=== PATIENT | female | born 1990 | race Two or more races ===

== ENCOUNTER → 2019-06-05 | Outpatient (CLI) | payer OTHER | END | disposition home or self-care (01) | LOC: PRENATAL 14:00 | DX: O99.212 Obesity complicating pregnancy, second trimester (principal); O36.4XX1 Maternal care for intrauterine death, fetus 1; O35.3XX1 Maternal care for (suspected) damage to fetus from viral disease in mother, fetus 1; O09.292 Supervision of pregnancy with other poor reproductive or obstetric history, second trimester ==

== ENCOUNTER 2019-09-22 13:05 | Inpatient (IN) | payer OTHER ==
[~2019-09-22] VITALS: Ht 160 cm; Wt 78.9 kg
[2019-09-24] MEDS ORDERED: PRENATAL + DHA1 EAC1 PO (09:23)
== END 2019-09-25 13:34 | disposition home or self-care (01) | DRG 768 ==
LOC: OBS/DEL 13:05 → OB/GYN 09-23 09:52 → OBS/DEL 09-23 09:52 → LDR 09-23 09:52 → OB/GYN 09-23 17:26
PROVIDERS: ADMIT Obstetrics & Gynecology; ATTEND Obstetrics & Gynecology
PROC: 10E0XZZ Delivery of Products of Conception, External Approach (ICD-10-PCS; principal; 2019-09-23)
PROC: 0DQR0ZZ Repair Anal Sphincter, Open Approach (ICD-10-PCS; 2019-09-23)
PROC: 0W8NXZZ Division of Female Perineum, External Approach (ICD-10-PCS; 2019-09-23)
PROC: 10907ZC Drainage of Amniotic Fluid, Therapeutic from Products of Conception, Via Natural or Artificial Opening (ICD-10-PCS; 2019-09-23)
PROC: 4A1HXCZ Monitoring of Products of Conception, Cardiac Rate, External Approach (ICD-10-PCS; 2019-09-23)
DX: O70.21 Third degree perineal laceration during delivery, IIIa (principal); Z37.0 Single live birth; O98.32 Other infections with a predominantly sexual mode of transmission complicating childbirth; A60.09 Herpesviral infection of other urogenital tract; Z3A.37 37 weeks gestation of pregnancy; Z20.828 Contact with and (suspected) exposure to other viral communicable diseases

== ENCOUNTER 2021-08-31 14:53 | Emergency (ER) | payer OTHER ==
[~2021-08-31] VITALS: Ht 160 cm; Wt 70.8 kg
[~2021-08-31 14:53] MED LIST: PRENATAL + DHA1 EAC1 PO
[2021-08-31] MEDS ORDERED: PROAIR HFA8.5 GM (15:39)
== END 2021-08-31 18:20 | disposition home or self-care (01) ==
LOC: ER 14:53
DX: O20.9 Hemorrhage in early pregnancy, unspecified (principal); O41.8X10 Other specified disorders of amniotic fluid and membranes, first trimester, not applicable or unspecified; Z3A.09 9 weeks gestation of pregnancy

== ENCOUNTER 2021-10-01 08:16 | Outpatient (CLI) | payer OTHER ==
[~2021-10-01 08:16] MED LIST changes: +PROAIR HFA8.5 GM
== END 2021-10-01 09:15 | disposition home or self-care (01) ==
LOC: PRENATAL 08:16
PROVIDERS: ATTEND Obstetrics & Gynecology Maternal & Fetal Medicine
DX: O36.80X0 Pregnancy with inconclusive fetal viability, not applicable or unspecified (principal); Z36.0 Encounter for antenatal screening for chromosomal anomalies; Z3A.13 13 weeks gestation of pregnancy

== ENCOUNTER 2021-10-14 17:18 | Emergency (ER) | payer OTHER ==
[~2021-10-14] VITALS: Ht 160 cm; Wt 71.2 kg
[2021-10-14] MEDS ORDERED: NITROFURANTOIN100 MG PO (20:46)
== END 2021-10-14 21:12 | disposition home or self-care (01) ==
LOC: ER 17:18
DX: O23.42 Unspecified infection of urinary tract in pregnancy, second trimester (principal); N39.0 Urinary tract infection, site not specified; Z3A.15 15 weeks gestation of pregnancy

== ENCOUNTER 2021-11-19 12:51 | Outpatient (CLI) | payer OTHER ==
[~2021-11-19 12:51] MED LIST changes: +NITROFURANTOIN100 MG PO
== END 2021-11-19 14:11 | disposition home or self-care (01) ==
LOC: PRENATAL 12:51
PROVIDERS: ATTEND Obstetrics & Gynecology Maternal & Fetal Medicine
DX: O35.0XX0 Maternal care for (suspected) central nervous system malformation in fetus, not applicable or unspecified (principal); O35.3XX0 Maternal care for (suspected) damage to fetus from viral disease in mother, not applicable or unspecified; Z3A.20 20 weeks gestation of pregnancy

== ENCOUNTER 2022-02-01 22:18 | Outpatient (CLI) | payer OTHER | END 2022-02-02 19:52 | disposition home or self-care (01) | LOC: OBS/DEL 22:18 | PROVIDERS: ATTEND Obstetrics & Gynecology | DX: O26.893 Other specified pregnancy related conditions, third trimester (principal); O23.43 Unspecified infection of urinary tract in pregnancy, third trimester; N39.0 Urinary tract infection, site not specified; O47.03 False labor before 37 completed weeks of gestation, third trimester; Z3A.31 31 weeks gestation of pregnancy; R10.2 Pelvic and perineal pain; Z20.822 Contact with and (suspected) exposure to COVID-19 ==

== ENCOUNTER 2022-03-31 12:25 | Inpatient (IN) | payer OTHER ==
[~2022-03-31] VITALS: Ht 152.4 cm; Wt 86.2 kg
[2022-04-04] MEDS ORDERED: VALTREX1000 MG PO (13:06)
[2022-04-04] MEDS ORDERED: IRON325 MG PO (13:07)
== END 2022-04-06 13:51 | disposition home or self-care (01) | DRG 807 ==
LOC: OB/GYN 04-04 12:32 → LDR 04-04 12:32 → OB/GYN 04-04 17:03 → LDR 04-06 13:15 → OB/GYN 04-06 13:51
PROVIDERS: ADMIT Obstetrics & Gynecology; ATTEND Obstetrics & Gynecology
PROC: 10E0XZZ Delivery of Products of Conception, External Approach (ICD-10-PCS; principal; 2022-04-04)
PROC: 0W8NXZZ Division of Female Perineum, External Approach (ICD-10-PCS; 2022-04-04)
PROC: 4A1HXCZ Monitoring of Products of Conception, Cardiac Rate, External Approach (ICD-10-PCS; 2022-04-04)
DX: O80 Encounter for full-term uncomplicated delivery (principal); Z37.0 Single live birth; Z3A.39 39 weeks gestation of pregnancy; Z20.822 Contact with and (suspected) exposure to COVID-19

== ENCOUNTER 2022-10-27 11:16 | Outpatient (CLI) | payer OTHER ==
[~2022-10-27 11:16] MED LIST changes: +IRON325 MG PO; +VALTREX1000 MG PO
== END 2022-10-27 12:13 | disposition home or self-care (01) ==
LOC: PRENATAL 11:16
PROVIDERS: ATTEND Obstetrics & Gynecology Maternal & Fetal Medicine
DX: O36.80X0 Pregnancy with inconclusive fetal viability, not applicable or unspecified (principal); Z36.82 Encounter for antenatal screening for nuchal translucency; Z36.9 Encounter for antenatal screening, unspecified; Z14.8 Genetic carrier of other disease; Z3A.14 14 weeks gestation of pregnancy

== ENCOUNTER 2023-02-20 19:19 | Emergency (ER) | payer OTHER ==
[~2023-02-20] VITALS: Ht 160 cm; Wt 85.3 kg
== END 2023-02-20 21:53 | disposition home or self-care (01) ==
LOC: ER 19:20
DX: O99.513 Diseases of the respiratory system complicating pregnancy, third trimester (principal); J10.1 Influenza due to other identified influenza virus with other respiratory manifestations; Z3A.30 30 weeks gestation of pregnancy; Z20.822 Contact with and (suspected) exposure to COVID-19

== ENCOUNTER 2023-03-02 10:04 | Outpatient (CLI) | payer OTHER | END 2023-03-02 10:06 | disposition home or self-care (01) | LOC: PRENATAL 10:04 | PROVIDERS: ATTEND Obstetrics & Gynecology Maternal & Fetal Medicine | DX: O26.849 Uterine size-date discrepancy, unspecified trimester (principal); O36.8199 Decreased fetal movements, unspecified trimester, other fetus; Z3A.32 32 weeks gestation of pregnancy ==

== ENCOUNTER 2023-03-09 10:23 | Inpatient (IN) | payer OTHER ==
[~2023-03-09] VITALS: Ht 160 cm; Wt 85.3 kg
[2023-03-09 12:18] LABS: HEMATOCRIT 36.5 % (36.0-45.00); HEMOGLOBIN 12.4 g/dL (12.0-15.00); MEAN CELL VOLUME 74.9 fL (80.00-100.00); MEAN CORPUSCULAR HEMOGLOBIN 25.4 pg (27.00-32.0); MEAN CORPUSCULAR HGB CONC 33.9 g/dl (32.0-36.0); PLATELET COUNT 303 K/uL (150-450); RED BLOOD COUNT 4.87 M/uL (4.00-6.00); RED CELL DISTRIBUTION WIDTH 15.7 % (11.5-14.5)
[2023-03-09 12:45] LABS: INR < 0.93; PROTHROMBIN TIME 9.8 SECONDS (9.0-11.5)
[2023-03-09 12:49] LABS: ALBUMIN 2.8 gm/dL (3.4-5.0); BILIRUBIN TOTAL 0.47 mg/dL (0.3-1.2); CALCIUM 8.8 mg/dL (8.5-10.1); CREATININE SERUM 0.53 mg/dL (0.55-1.02); GFR 134.55; GLOBULINA 5.1 G/DL (2.4-3.5); POTASSIUM 3.98 mEq/L (3.5-5.1); TOTAL PROTEIN 7.9 gm/dL (6.4-8.2)
[2023-03-09 19:16] LABS: URINE APPEARANCE Clear; URINE BILIRRUBIN Negative (NEGATIVE); URINE BLOOD Negative; URINE COLOR Yellow; URINE GLUCOSE Negative (NEGATIVE); URINE LEUKOCYTE Trace; URINE NITRATE Negative; URINE PROTEIN Negative (NEGATIVE)
[2023-03-09 19:20] LABS: URINE BACTERIA 1121.2 uL (0.0-1933); URINE EPITHELIAL CELLS 35.8 uL (0.0-38.8); URINE RBC 6.8 uL (0.0-20.8); URINE WBC 11.7 uL (0.0-23.2)
[2023-03-10 16:58] LABS: URINE APPEARANCE Clear; URINE BILIRRUBIN Negative (NEGATIVE); URINE BLOOD Negative; URINE COLOR Yellow; URINE GLUCOSE Negative (NEGATIVE); URINE LEUKOCYTE Large; URINE NITRATE Negative; URINE PROTEIN Negative (NEGATIVE)
[2023-03-10 16:58] LABS: HEMATOCRIT 32.5 % (36.0-45.00); MEAN CELL VOLUME 76.4 fL (80.00-100.00); MEAN CORPUSCULAR HEMOGLOBIN 25.8 pg (27.00-32.0); MEAN CORPUSCULAR HGB CONC 33.7 g/dl (32.0-36.0); PLATELET COUNT 276 K/uL (150-450); RED BLOOD COUNT 4.25 M/uL (4.00-6.00); RED CELL DISTRIBUTION WIDTH 15.4 % (11.5-14.5)
[2023-03-10 17:01] LABS: URINE BACTERIA 748.4 uL (0.0-1933); URINE EPITHELIAL CELLS 27.3 uL (0.0-38.8); URINE RBC 4.4 uL (0.0-20.8); URINE WBC 75.2 uL (0.0-23.2)
[2023-03-10 17:29] LABS: ALBUMIN 2.9 gm/dL (3.4-5.0); BILIRUBIN TOTAL 0.45 mg/dL (0.3-1.2); CREATININE SERUM 0.51 mg/dL (0.55-1.02); GFR 140.65; GLOBULINA 4.3 G/DL (2.4-3.5); PHOSPHOROUS 2.8 mg/dL (2.5-4.9); POTASSIUM 4.24 mEq/L (3.5-5.1); TOTAL PROTEIN 7.2 gm/dL (6.4-8.2)
[2023-03-11] MEDS ORDERED: FLECAINIDE ACET50 MG PO (13:16)
[2023-03-11] MEDS ORDERED: TOPROL XL25 M1 PO (13:19)
[2023-03-11] MEDS ORDERED: METRONIDAZOLE500 MG PO (13:20)
[2023-03-11] MEDS ORDERED: CEPHALEXIN500 MG PO (13:20)
[2023-03-11 13:55] LABS: ALBUMIN 2.9 gm/dL (3.4-5.0); BILIRUBIN TOTAL 0.43 mg/dL (0.3-1.2); CALCIUM 9.1 mg/dL (8.5-10.1); CREATININE SERUM 0.5 mg/dL (0.55-1.02); FREE TRIODOTIRONINE 1.83 pg/ml (2.18-3.98); GFR 143.9; GLOBULINA 4.5 G/DL (2.4-3.5); POTASSIUM 4.41 mEq/L (3.5-5.1); T4 FREE 0.9 NG/ML (0.76-1.46); TOTAL PROTEIN 7.4 gm/dL (6.4-8.2); TSH 0.726 uIU/mL (0.358-3.74)
[2023-03-11 14:21] LABS: T4 TOTAL 14.71 UG/DL (4.8-13.9)
== END 2023-03-11 13:44 | disposition home or self-care (01) | DRG 832 ==
LOC: ER 10:24 → SEC-K 16:38 → ICU-2 16:38 → SURH 17:28 → ICU-2 20:29 → ICU 03-10 14:19
PROVIDERS: General Practice; ADMIT Obstetrics & Gynecology; ATTEND Obstetrics & Gynecology
PROC: 4A1HXCZ Monitoring of Products of Conception, Cardiac Rate, External Approach (ICD-10-PCS; principal; 2023-03-09)
PROC: B246ZZZ Ultrasonography of Right and Left Heart (ICD-10-PCS; 2023-03-09)
PROC: BY4FZZZ Ultrasonography of Third Trimester, Single Fetus (ICD-10-PCS; 2023-03-10)
DX: O99.413 Diseases of the circulatory system complicating pregnancy, third trimester (principal); O23.43 Unspecified infection of urinary tract in pregnancy, third trimester; I49.9 Cardiac arrhythmia, unspecified; I48.91 Unspecified atrial fibrillation; O36.8130 Decreased fetal movements, third trimester, not applicable or unspecified; O26.843 Uterine size-date discrepancy, third trimester; O40.3XX0 Polyhydramnios, third trimester, not applicable or unspecified; O99.893 Other specified diseases and conditions complicating puerperium; Z3A.33 33 weeks gestation of pregnancy; Z20.822 Contact with and (suspected) exposure to COVID-19

== ENCOUNTER 2023-03-30 08:35 | Outpatient (CLI) | payer OTHER ==
[~2023-03-30 08:35] MED LIST changes: +CEPHALEXIN500 MG PO; +FLECAINIDE ACET50 MG PO; +METRONIDAZOLE500 MG PO; +TOPROL XL25 M1 PO
== END 2023-03-30 08:36 | disposition home or self-care (01) ==
LOC: PRENATAL 08:35
PROVIDERS: ATTEND Obstetrics & Gynecology Maternal & Fetal Medicine
DX: O26.849 Uterine size-date discrepancy, unspecified trimester (principal); O24.419 Gestational diabetes mellitus in pregnancy, unspecified control; O36.8199 Decreased fetal movements, unspecified trimester, other fetus; Z3A.36 36 weeks gestation of pregnancy

== ENCOUNTER 2023-04-06 10:20 | Inpatient (IN) | payer OTHER ==
[~2023-04-06] VITALS: Ht 160 cm; Wt 86.2 kg
[2023-04-06 11:03] LABS: HEMATOCRIT 32.8 % (36.0-45.00); HEMOGLOBIN 11.1 g/dL (12.0-15.00); MEAN CELL VOLUME 76.2 fL (80.00-100.00); MEAN CORPUSCULAR HEMOGLOBIN 25.7 pg (27.00-32.0); MEAN CORPUSCULAR HGB CONC 33.7 g/dl (32.0-36.0); PH,URINE 6.5 (5.0-8.0); PLATELET COUNT 225 K/uL (150-450); RED BLOOD COUNT 4.31 M/uL (4.00-6.00); RED CELL DISTRIBUTION WIDTH 15.5 % (11.5-14.5); URINE APPEARANCE Clear; URINE BILIRRUBIN Negative (NEGATIVE); URINE BLOOD Negative; URINE COLOR Yellow; URINE GLUCOSE Negative (NEGATIVE); URINE LEUKOCYTE Negative; URINE NITRATE Negative; URINE PROTEIN Negative (NEGATIVE); URINE UROBILINOGEN 0.2 E.U./dl
[2023-04-06 11:06] LABS: URINE BACTERIA 46.5 uL (0.0-1933); URINE EPITHELIAL CELLS 5.6 uL (0.0-38.8); URINE RBC 2.4 uL (0.0-20.8)
[2023-04-06 11:26] LABS: INR < 0.93; PARTIAL THROMBOPLASTIN TIME 22.8 SECONDS (22.0-34.0); PROTHROMBIN TIME 9.6 SECONDS (9.0-11.5)
[2023-04-06 11:31] LABS: URINE WBC 1.2 uL (0.0-23.2)
[2023-04-06 11:50] LABS: ALBUMIN 2.8 gm/dL (3.4-5.0); BILIRUBIN TOTAL 0.43 mg/dL (0.3-1.2); CALCIUM 9.2 mg/dL (8.5-10.1); CREATININE SERUM 0.54 mg/dL (0.55-1.02); GFR 131.68; GLOBULINA 4.4 G/DL (2.4-3.5); POTASSIUM 4.4 mEq/L (3.5-5.1); TOTAL PROTEIN 7.2 gm/dL (6.4-8.2)
[2023-04-06 22:24] LABS: ABG pCO2 127.8 mmHg (35-45)
[2023-04-06 22:25] LABS: ABG PO2 20.2 mmHg (80-100); BASE EXCESS -17.8 mmol/l; BICARBONATE 19.7 mmol/l (23-25); SaO2 9.6 %; Tco2 23.6 mmol/l; o2 21 %
[2023-04-07 06:28] LABS: HEMATOCRIT 29.1 % (36.0-45.00); MEAN CELL VOLUME 76.4 fL (80.00-100.00); MEAN CORPUSCULAR HEMOGLOBIN 26.2 pg (27.00-32.0); MEAN CORPUSCULAR HGB CONC 34.3 g/dl (32.0-36.0); PLATELET COUNT 189 K/uL (150-450); RED BLOOD COUNT 3.81 M/uL (4.00-6.00); RED CELL DISTRIBUTION WIDTH 15.7 % (11.5-14.5)
[2023-04-09 03:03] LABS: HEMATOCRIT 29.2 % (36.0-45.00); HEMOGLOBIN 9.8 g/dL (12.0-15.00); MEAN CELL VOLUME 76.3 fL (80.00-100.00); MEAN CORPUSCULAR HEMOGLOBIN 25.6 pg (27.00-32.0); MEAN CORPUSCULAR HGB CONC 33.5 g/dl (32.0-36.0); PLATELET COUNT 244 K/uL (150-450); RED BLOOD COUNT 3.83 M/uL (4.00-6.00); RED CELL DISTRIBUTION WIDTH 15.9 % (11.5-14.5)
[2023-04-09] MEDS ORDERED: COLACE100 MG PO (12:45)
[2023-04-09] MEDS ORDERED: IBU800 MG PO (12:45)
[2023-04-09] MEDS ORDERED: SIMETHICONE125 M1 PO (12:46)
[2023-04-09] MEDS ORDERED: FOLITAB 500 CA1 EACH PO (12:46)
== END 2023-04-09 13:03 | disposition home or self-care (01) | DRG 783 ==
LOC: LDR 10:20 → OB/GYN 10:20 → O/R 12:04 → LDR 12:05 → O/R 18:51 → OB/GYN 21:28
PROVIDERS: Specialist; ADMIT Obstetrics & Gynecology; ATTEND Obstetrics & Gynecology
PROC: 0UB70ZZ Excision of Bilateral Fallopian Tubes, Open Approach (ICD-10-PCS; 2023-04-06)
PROC: 4A1HXCZ Monitoring of Products of Conception, Cardiac Rate, External Approach (ICD-10-PCS; 2023-04-06)
PROC: 10D00Z1 Extraction of Products of Conception, Low, Open Approach (ICD-10-PCS; principal; 2023-04-06 17:00)
DX: O32.1XX0 Maternal care for breech presentation, not applicable or unspecified (principal); O99.42 Diseases of the circulatory system complicating childbirth; I11.9 Hypertensive heart disease without heart failure; O24.420 Gestational diabetes mellitus in childbirth, diet controlled; Z3A.37 37 weeks gestation of pregnancy; Z37.0 Single live birth; Z30.2 Encounter for sterilization

== ENCOUNTER 2023-04-14 17:53 | Emergency (ER) | payer OTHER ==
[~2023-04-14] VITALS: Ht 160 cm; Wt 81.6 kg
[~2023-04-14 17:53] MED LIST changes: +COLACE100 MG PO; +FOLITAB 500 CA1 EACH PO; +IBU800 MG PO; +SIMETHICONE125 M1 PO
[2023-04-14] MEDS ORDERED: 0.9 % SODIUM CHLORIDE 1,000 ML IV SCH (19:30)
[2023-04-14] MEDS ORDERED: CEFTRIAXONE SODIUM 1,000 MG VIAL IV ONE (19:30)
[2023-04-14 20:03] LABS: HEMATOCRIT 27.9 % (36.0-45.00); HEMOGLOBIN 9.4 g/dL (12.0-15.00); MEAN CELL VOLUME 74.2 fL (80.00-100.00); MEAN CORPUSCULAR HGB CONC 33.6 g/dl (32.0-36.0); PLATELET COUNT 365 K/uL (150-450); RED BLOOD COUNT 3.76 M/uL (4.00-6.00); RED CELL DISTRIBUTION WIDTH 15.5 % (11.5-14.5)
[2023-04-14 21:03] LABS: ALBUMIN 2.6 gm/dL (3.4-5.0); BILIRUBIN TOTAL 0.3 mg/dL (0.3-1.2); CALCIUM 8.4 mg/dL (8.5-10.1); CREATININE SERUM 0.53 mg/dL (0.55-1.02); GFR 134.55; GLOBULINA 4.1 G/DL (2.4-3.5); POTASSIUM 3.67 mEq/L (3.5-5.1); TOTAL PROTEIN 6.7 gm/dL (6.4-8.2)
[2023-04-14] MEDS ORDERED: BACTRIM DS TAB1 EACH PO (23:27)
== END 2023-04-14 23:35 | disposition home or self-care (01) ==
LOC: ER 17:53
PROVIDERS: General Practice
DX: O90.9 Complication of the puerperium, unspecified (principal); R53.81 Other malaise
CPT/HCPCS: 36415; 74177; Q9965